=== PATIENT | male | born 1940 | race African-American/Black ===

== ENCOUNTER 2016-07-23 19:28 | Emergency (ER) | payer SELFPAY ==
[2016-07-23] MEDS ORDERED: TYLENOL EXTRA500 M1 PO (20:33)
[2016-07-23] MEDS ORDERED: ASPIRIN81 M1 PO (20:33)
[2016-07-23] MEDS ORDERED: NAPROSYN500 M1 PO (20:34)
[2016-07-23] MEDS ORDERED: GLUCOPHAGE500 M3 PO (20:35)
[2016-07-23] MEDS ORDERED: BRILINTA90 M1 PO (20:35)
[2016-07-23] MEDS ORDERED: TENORMIN50 M1 PO (20:36)
[2016-07-23] MEDS ORDERED: LISINOPRIL5 M1 PO (20:36)
[2016-07-23] MEDS ORDERED: ZOCOR40 M1 PO (20:36)
[2016-07-23] MEDS ORDERED: LANTUS100 UNITS/ SC (20:37)
[2016-07-23] MEDS ORDERED: NOVOFINE MC (20:38)
[2016-07-23 21:13] LABS: BASO % 0.3 % (0-2); EOS % 8.2 % (0-7); EOSINOPHIL ABSOLUTE COUNT 0.5 tho/cmm (0.0-0.7); HCT-HEMATOCRIT 39.5 % (36.0-53.5); HGB-HEMOGLOBIN 13.5 gm/dl (13.5-17.0); IMMATURE GRANULOCYTES ABSOLUTE 0.02 tho/cmm (0-0.03); IMMATURE GRANULOCYTES PERCENT 0.3 % (0-0.3); LYMPH % 40.1 % (20-45); LYMPH ABSOLUTE COUNT 2.5 tho/cmm (0.8-4.5); MCH (MEAN CORPUSCULAR HGB) 27.3 pg (28.0-32.0); MCHC MEAN CORPUSCULAR HGB CONC 34.2 % (32.0-36.0); MCV (MEAN CELL VOLUME) 79.8 fl (82.0-96.0); MEAN PLATELET VOLUME 9.7 cmc (9.4-12.4); MONO % 9.3 % (0-12); MONOCYTE ABSOLUTE COUNT 0.6 tho/cmm (0.0-1.2); NEUTROPHIL ABSOLUTE COUNT 2.6 tho/cmm (1.6-8.0); NEUTROPHIL-AUTOMATED 2.6 tho/cmm (1.6-8.0); NEUTROPHILS % 41.8 % (40-80); PLATELET COUNT 225 tho/cmm (150-450); RED BLOOD COUNT 4.95 mil/cmm (4.40-5.70); RED CELL DISTRIBUTION WIDTH 13.5 % (12.4-16.4); WHITE BLOOD COUNT 6.3 tho/cmm (4.0-10.0)
[2016-07-23 21:23] LABS: ANION GAP 13 mmol/L (0-20); BLOOD UREA NITROGEN 20 mg/dl (6-24); CALCIUM 8.9 mg/dl (8.5-10.5); CARBON DIOXIDE-VENOUS 23 mmol/L (22-32); CHLORIDE 101 mmol/l (96-110); GLUCOSE 220 mg/dL (70-110); SODIUM 132 mmol/L (135-145); eGFR VALUE FOR BLACK 85 mL/Min
[2016-07-23 21:27] LABS: POTASSIUM 4.5 mmol/L (3.7-5.1)
[2016-07-23] MEDS ORDERED: MOBIC7.5 M2 PO (21:46)
[2016-07-23] MEDS ORDERED: CODEINE-GUAIFE120 M1 PO (21:46)
== END 2016-07-23 21:58 ==
LOC: EDMED 19:28
PROVIDERS: Emergency Medicine
DX: J06.9 Acute upper respiratory infection, unspecified (principal); I25.10 Atherosclerotic heart disease of native coronary artery without angina pectoris; I10 Essential (primary) hypertension; E11.9 Type 2 diabetes mellitus without complications; E78.5 Hyperlipidemia, unspecified; Z95.5 Presence of coronary angioplasty implant and graft; Z79.4 Long term (current) use of insulin; Z79.82 Long term (current) use of aspirin; Z79.899 Other long term (current) drug therapy